=== PATIENT | male | born 1950 | race African-American/Black ===

== ENCOUNTER 2019-05-04 04:33 | Inpatient (IN) | payer MEDICAID, OTHER ==
[2019-05-04] VITALS (8 sets, daily range): BP systolic 130–146; BP diastolic 59–87
[~2019-05-04] VITALS: Ht 180.3 cm; Wt 67.1 kg
[2019-05-04] MEDS ORDERED: AMLODIPINE BESYL5 MG ORAL (04:37)
[2019-05-04] MEDS ORDERED: ATORVASTATIN CA20 MG ORAL (04:37)
--- NOTE | 2019-05-04 04:44 | Emergency Room Report ---
History of Present Illness General Chief Complaint: Suicidal Source: Patient, EMS (Frankie Lou MD) Present Illness HPI This is a 68-year-old male with a history of hypertension. He also has a history of chronic pain for which he takes Bethalto 10/325. He gets 120 tablets every month. He also get lidocaine injection. He presents with chief complaint of generalized body pain and feeling suicidal and homicidal. Onset tonight. He said he could not find his pain medication. He does not know what he left him. He complained of generalized body pain which is 10 out of 10. This caused him to be suicidal and homicidal. He said he needs observation. He is been through this before. He said they when he gets pain he will drink and use any drugs to make him feel better. He denies any trauma. No particular plans. (Frankie Lou MD) Allergies: Coded Allergies: IOHEXOL (Verified Allergy, Unknown, 05/04/19) IOPAMIDOL (Verified Allergy, Unknown, 05/04/19) Patient History Past Medical History: see triage record, old chart reviewed, psych hx, HTN Past Surgical History: other Family History: none Social History: tobacco use, ETOH, drug use Immunizations: other Reviewed Nursing Documentation: PMH: Agreed; PSxH: Agreed (Frankie Lou MD) Nursing Documentation-PMH Hx Cardiac Problems: Yes - HYPERLIPIDEMIA Hx Hypertension: Yes History Of Psychiatric Problem: Yes - DEPRESSION, DEMENTIA, PTSD (Frankie Lou MD) Review of Systems ENT: Denies: sore throat Cardiovascular: Denies: chest pain, palpitations Gastrointestinal/Abdominal: Denies: nausea, vomiting, diarrhea Musculoskeletal: Reports: back problems Skin: Denies: rash Psychiatric: Reports: suicidal/homicidal ideations Neurological: Denies: BOTELLO, seizures All Other Systems: negative except mentioned in HPI (Frankie Lou MD) Physical Exam Vital Signs Date Time Temp Pulse Resp B/P (MAP) Pulse Ox O2 Delivery O2 Flow Rate FiO2 05/04/19 04:26 98.4 70 16 179/90 (119) 98 Room Air Vitals with high blood pressure Sp02 EP Interpretation: reviewed, normal General Appearance: alert/responsive, no apparent distress, non-toxic Head: normocephalic, atraumatic Eyes: PERRL, EOMI ENT: oropharynx normal Neck: supple/symm/no masses Respiratory: effort normal, no rhonchi, no wheezing Cardiovascular: no murmur, gallop, rub Gastrointestinal: non-tender, no mass, non-distended, no rebound/guarding, normal bowel sounds Musculoskeletal: gait & station normal Neurologic: oriented x3, sensory intact, motor strength/tone normal Suicide Risk Assessment: Suicidal Ideation: Yes Had intent to initiate attempt: No Pt's plan for suicide attempt: No Has means to complete attempt: Yes Skin: no rash, normal palpation (Frankie Lou MD) Medical Decision Making Diagnostic Impression: Primary Impression: ACS (acute coronary syndrome) Additional Impressions: Chronic pain Qualified Codes: G89.4 - Chronic pain syndrome Polysubstance abuse Suicidal behavior Qualified Codes: R46.89 - Other symptoms and signs involving appearance and behavior Hypertension Qualified Codes: I10 - Essential (primary) hypertension ER Course This patient presents with feeling suicidal homicidal secondary to pain. He said he has chronic body pain. Troponin is intermediate. This may be secondary to substance abuse and demand ischemia. EKG showed no evidence of ST elevation. Because of the intermediate abnormal troponin, will need admission versus transfer further work-up and rule out before being evaluated by psychiatrist. Aspirin and Lovenox given here. Patient is chest pain-free now. (Frankie Lou MD) ER Course Patient signed out to me pending admission. Patient had received aspirin and Lovenox troponin elevation. Plan to admit patient here to telemetry floor for further observation. (Pablo Rouse M.D.) EKG Diagnostic Results Rate: normal Rhythm: NSR ST Segments: other - Right bundle branch block ASA given to the pt in ED: Yes (Frankie Lou MD) Rhythm Strip Diag. Results EP Interpretation: yes Rate: 66 Rhythm: NSR, no PVC's, no ectopy (Frankie Lou MD) Chest X-Ray Diagnostic Results Chest X-Ray Diagnostic Results : Chest X-Ray Ordered: Yes # of Views/Limited/Complete: 1 View Indication: Chest Pain EP Interpretation: Yes Interpretation: no consolidation, no effusion, no pneumothorax, no acute cardiopulmonary disease Impression: No acute disease Electronically Signed by: Frankie Lou MD (Frankie Lou MD) Last Vital Signs Date Time Temp Pulse Resp B/P (MAP) Pulse Ox O2 Delivery O2 Flow Rate FiO2 3/6/20 04:26 98.4 70 16 179/90 (817) 98 Room Air Status: improved (Frankie Lou MD) Disposition: ADMITTED INPATIENT Condition: Serious Frankie Lou MD May 04, 2019 04:44 Pablo Rouse M.D. May 04, 2019 07:32
[2019-05-04] MEDS ORDERED: Ketorolac 30mg Inj IV ONE (04:45)
[2019-05-04 05:26] LABS: BASOPHILS % (AUTO) 1.3 % (0.0-2.0); HEMATOCRIT 39.3 % (42.0-52.0); HEMOGLOBIN 14.6 G/DL (14.2-18.0); LYMPHOCYTES % (AUTO) 41.9 % (20.0-45.0); MEAN CORPUSCULAR VOLUME 90 FL (80-99); MONOCYTES % (AUTO) 10.1 % (1.0-10.0); NEUTROPHILS % (AUTO) 45.7 % (45.0-75.0); PLATELET COUNT 229 K/UL (150-450); RED BLOOD COUNT 4.35 M/UL (4.70-6.10); RED CELL DISTRIBUTION WIDTH 10.2 % (11.6-14.8); WHITE BLOOD COUNT 4.3 K/UL (4.8-10.8)
[2019-05-04 05:39] LABS: ANION GAP 12 mmol/L (5-15); BLOOD UREA NITROGEN 18 mg/dL (7-18); CALCIUM 9.2 MG/DL (8.5-10.1); CARBON DIOXIDE 26 MMOL/L (21-32); CHLORIDE 100 MMOL/L (98-107); CREATININE 0.9 MG/DL (0.55-1.30); POTASSIUM 3.4 MMOL/L (3.5-5.1); SODIUM 138 MMOL/L (136-145)
[2019-05-04 05:47] LABS: ALANINE AMINOTRANSFERASE 64 U/L (12-78); ALKALINE PHOSPHATASE 83 U/L (46-116); ASPARTATE AMINO TRANSFERASE 58 U/L (15-37); BILIRUBIN,TOTAL 0.9 MG/DL (0.2-1.0)
[2019-05-04] MEDS ORDERED: Aspirin Baby 81mg ORAL ONE (06:00)
[2019-05-04] MEDS ORDERED: Enoxaparin 80mg Inj SUBQ ONE (06:00)
[2019-05-04 06:46] LABS: APPEARANCE,URINE CLEAR; BILIRUBIN, URINE NEGATIVE (NEGATIVE); COLOR,URINE PALE YELLOW; GLUCOSE, URINE (UA) NEGATIVE (NEGATIVE); KETONES,URINE 1+ (NEGATIVE); LEUKOCYTE ESTERASE ,URINE NEGATIVE (NEGATIVE); NITRITE,URINE NEGATIVE (NEGATIVE); PH,URINE 7 (4.5-8.0); PROTEIN,URINE NEGATIVE (NEGATIVE); UROBILINOGEN,URINE NORMAL MG/DL (0.0-1.0)
[2019-05-04] MEDS ORDERED: dilTIAZem HCl 25mg/5ml Inj IV PRN (07:45)
[2019-05-04] MEDS ORDERED: Enalaprilat 2.5mg/2ml Inj IV PRN (07:45)
--- NOTE | 2019-05-04 08:46 | Diagnostic Imaging Report ---
Indication: Chest pain Technique: One view of the chest Comparison: none Findings: Lungs and pleural spaces are clear. Heart size is normal. Impression: No acute process
[2019-05-04] MEDS ORDERED: Miralax 17gm pkt ORAL PRN (09:15)
[2019-05-04] MEDS ORDERED: Albuterol/Ipratropium 3ml neb HHN PRN (09:15)
[2019-05-04] MEDS ORDERED: Nitroglycerin Subl 0.4mg tab SL PRN (09:15)
[2019-05-04] MEDS ORDERED: Aspirin Baby 81mg ORAL SCH (11:00)
[2019-05-04] MEDS: Heparin 5000 units/ml inj SUBQ SCH ×2 (11:38→21:04)
--- NOTE | 2019-05-04 15:30 | History and Physical Report ---
DATE OF ADMISSION: 05/04/2019 HISTORY OF PRESENT ILLNESS: This 68-year-old male with history of hypertension and chronic pain. He admits to cocaine usage. He also takes narcotics. He presented to the hospital with multiple complaints including chest pain and shortness of breath. He also reported being suicidal and being depressed. He is asking for pain medications. PAST MEDICAL HISTORY: Notable for psychiatric history, hypertension, and substance abuse. PAST SURGICAL HISTORY: None. SOCIAL HISTORY: He admits to alcohol use, tobacco use, and drug abuse. FAMILY HISTORY: None. HOME MEDICATIONS: Reviewed and reconciled in the chart. REVIEW OF SYSTEMS: Denies any headaches, hematemesis, melena, or hematochezia. PHYSICAL EXAMINATION: GENERAL: Reveals a 68-year-old male. VITAL SIGNS: Blood pressure is 130/80, heart rate 58, and respirations 18. He is afebrile. O2 saturation is 98% on room air. HEENT: Unremarkable. CHEST: Decreased breath sounds bilaterally. CARDIAC: Normal heart sounds. ABDOMEN: Soft. EXTREMITIES: There is no edema. NEUROLOGIC: Nonfocal. LABORATORY AND DIAGNOSTIC DATA: Lab testing shows normal CBC and BMP. Troponin is elevated to 0.11. Toxicology is positive for cocaine. Urinalysis is negative. Imaging studies obtained yesterday shows a clear chest x-ray. EKG showed normal sinus rhythm. IMPRESSION: 1. Chest pain. 2. Troponin leak. 3. Cocaine use. 4. Hypertension. 5. Depression. 6. PTSD. 7. Suicidal ideation. DISCUSSION: Admit to the hospital. I will continue his home medications. We will consult Psychiatry and Cardiology, check serial troponins. We will follow carefully. Tono Lackey M.D. DR: KIN JOB#: [id number] CC:
[2019-05-04] MEDS: Nitroglycerin 2% oint pkt TOPIC SCH (17:34)
[2019-05-04] MEDS ORDERED: Ketorolac 30mg Inj IV SCH (17:45)
--- NOTE | 2019-05-04 18:45 | Consultation ---
DATE OF CONSULTATION: 05/04/2019 CONSULTING PHYSICIAN: Chandra Monreal M.D. REFERRING PHYSICIAN: Tono Lackey M.D. REASON FOR CONSULTATION: Elevated troponin level in the setting of cocaine intoxication. HISTORY OF PRESENT ILLNESS: This 68-year-old male has a history of hypertension and chronic pain as well as cocaine abuse. He is on chronic narcotic analgesic therapy as well. He presented to the emergency room complaining of chest pain and shortness of breath. He has been suicidal and depressed as well. The patient's workup in the emergency room was notable for an elevated troponin level prompting this consultation. The patient denies chest pain at this time, but does have his usual diffuse back pain and is increasingly nauseated. PAST MEDICAL HISTORY: Hypertension, psychiatric disorder of unclear etiology, substance abuse, narcotic and analgesic dependence. SOCIAL HISTORY: Positive for alcohol, substance abuse including cocaine and tobacco use. FAMILY HISTORY: Noncontributory. MEDICATIONS: Reviewed and reconciled. REVIEW OF SYSTEMS: No known prior history of heart attack or irregular heartbeats. No history of rheumatic heart disease. No history of seizure or strokes. No known history of diabetes or thyroid impairment. Denies known history of COPD. Does not use nebulizer or inhaler therapy and has not been on steroids. Denies any known history of prostate cancer and denies any change in bowel habits or prior GI bleed. PHYSICAL EXAMINATION: VITAL SIGNS: Blood pressure 138/78, heart rate 68, respirations 18, afebrile, room air oxygen saturation 98%. GENERAL: Thin and tall. HEENT: Conjunctiva pink. Oropharynx clear. NECK: Supple. Jugular venous pressure normal. LUNGS: Clear. CARDIAC: Regular rhythm rate. Normal S1, S2 with a fourth heart sound. ABDOMEN: Soft, nontender. EXTREMITIES: No edema. NEUROLOGIC: Nonfocal. Affect is somewhat blunted. LABORATORY AND DIAGNOSTIC DATA: Chest x-ray with no acute process. Sodium 138, potassium 3.4. Troponin 0.117. BUN 18, creatinine 0.9. Albumin 4. White count 4.3, hemoglobin 14.6. EKG, sinus rhythm, 66 beats per minute, nonspecific ST change. IMPRESSION: 1. Cocaine intoxication. 2. Cardiac analgesic dependence with chronic pain. 3. Acute myocardial ischemia and possible non-ST elevation infarction. 4. Hypertension with labile blood pressure. 5. Hypokalemia. PLAN: 1. Cardiac monitoring. 2. Antiplatelet therapy. 3. DVT prophylaxis. 4. Topical nitrates. 5. Calcium channel therapy. 6. Avoid beta-blockers. 7. Symptom-guided pain control. 8. Consider nicotine patch. 9. PRN clonidine for blood pressure spikes. 10. Echocardiogram to evaluate left ventricular function. Chandra Monreal M.D. DR: MAREN JOB#: [id number] CC:
[2019-05-04] MEDS ORDERED: Atorvastatin 20mg tab ORAL SCH (21:00)
[2019-05-05] VITALS: BP 120/53
[2019-05-05 04:00] VITALS: BP 130/70
[2019-05-05] MEDS: Nitroglycerin 2% oint pkt TOPIC SCH (06:03)
[2019-05-05 07:27] LABS: HEMATOCRIT 36.5 % (42.0-52.0); MEAN CORPUSCULAR VOLUME 92 FL (80-99); PLATELET COUNT 186 K/UL (150-450); RED BLOOD COUNT 3.97 M/UL (4.70-6.10); RED CELL DISTRIBUTION WIDTH 10.4 % (11.6-14.8); WHITE BLOOD COUNT 3.4 K/UL (4.8-10.8)
[2019-05-05 08:00] VITALS: BP 147/76
[2019-05-05 08:14] LABS: ALANINE AMINOTRANSFERASE 40 U/L (12-78); ALBUMIN/GLOBULIN RATIO 0.9 (1.0-2.7); ALKALINE PHOSPHATASE 64 U/L (46-116); ANION GAP 10 mmol/L (5-15); ASPARTATE AMINO TRANSFERASE 39 U/L (15-37); BILIRUBIN,TOTAL 0.7 MG/DL (0.2-1.0); BLOOD UREA NITROGEN 19 mg/dL (7-18); CALCIUM 8.7 MG/DL (8.5-10.1); CARBON DIOXIDE 25 MMOL/L (21-32); CHLORIDE 107 MMOL/L (98-107); CHOLESTEROL 125 MG/DL (< 200); CREATININE 1.1 MG/DL (0.55-1.30); HDL CHOLESTEROL 71 MG/DL (40-60); POTASSIUM 3.9 MMOL/L (3.5-5.1); SODIUM 142 MMOL/L (136-145); TRIGLYCERIDES 44 MG/DL (30-150)
[2019-05-05 08:22] VITALS: BP 147/76
[2019-05-05] MEDS: Heparin 5000 units/ml inj SUBQ SCH (08:27)
[2019-05-05] MEDS ORDERED: Aspirin Baby 81mg ORAL SCH (09:00)
--- NOTE | 2019-05-06 00:30 | Progress Note ---
DATE: 05/05/2019 CARDIOLOGY PROGRESS NOTE SUBJECTIVE: The patient denies any distress. He is anxious to leave. I have discussed he has no chest pain. PHYSICAL EXAMINATION: VITAL SIGNS: Blood pressure 147/76, pulse 57, respiratory rate 17. LUNGS: Clear. CARDIAC: Regular. Normal S1, S2 with a fourth heart sound. ABDOMEN: Soft. No edema. IMPRESSION: 1. Cocaine abuse. 2. Acute myocardial ischemia and possible infarction. 3. Hypertension with labile blood pressure improved. 4. Hypokalemia status post replacement therapy. PLAN: 1. Continue anti-platelet drugs. 2. Calcium blockers and nitrates. 3. No beta-blockers. 4. Symptom-guided pain control. 5. Await echocardiogram. 6. The patient counseled regarding the risk of sudden cardiac with cocaine use as well as long-term cardiovascular compromise. Chandra Monreal M.D. DR: YVETTE JOB#: [id number] CC:
--- NOTE | 2019-05-06 11:11 | Discharge Summary ---
Discharge Summary Discharge Summary _ DATE OF ADMISSION: 05/04/2019 DATE OF DISCHARGE: 05/05/2019 Patient left AGAINST MEDICAL ADVICE REASON FOR ADMISSION: 68 years old male with past medical history of hypertension, substance abuse, psychiatric history, chronic pain, cocaine use , presented to the hospital with multiple complaints, including chest pain and shortness of breath. Patient also reported being depressed. Patient was asking for pain medication. Upon evaluation blood pressure was elevated 179/90, pulse oximetry was stable on room air. Laboratory work-up revealed troponin 0.117 .EKG revealed sinus rhythm with nonspecific ST changes. Potassium 3.4, stable other electrolytes and renal parameters. No leukocytosis , stable hemoglobin and hematocrit . Urine toxicology screen positive for cocaine. Serum Tylenol ,salicylate and alcohol were negative. Chest x-ray demonstrated no acute cardiopulmonary pathology. In emergency department patient received aspirin and Lovenox and admitted for further management CONSULTANTS: medical records supervisor [facility]RSE: Patient admitted to telemetry floor. Home medication continued. Psychiatry and cardiology consults were requested. Serial troponinswere followed: second troponin down to near normal -0.058. Echocardiogram revealed preserved ejection fraction of 60 to 65% with no evidence of wall motion abnormality to the extent visualized. Concentric left ventricular hypertrophy. Right ventricular systolic pressure of 22. Lipid panel was stable. Patient was on antiplatelet therapy, topical nitrates and calcium channel therapy. Beta-pepito avoided due to active use of cocaine. Blood pressure was managed with calcium channel pepito and clonidine was on board as needed for blood pressure spikes. Hypokalemia corrected, potassium stable the next day. Magnesium level stable. TSH within normal limits. Blood pressure stabilized with current regimen . Pprior to signing AMA blood pressure 147/76. In the morning on 05/04 patient decided to leave AGAINST MEDICAL ADVICE. Patient had no signs and symptoms of respiratory distress. He denied any chest pain. The risks and consequences of signing AGAINST MEDICAL ADVICE were discussed with patient in detail. Patient verbalized understanding, nevertheless signed AMA form and left. FINAL DIAGNOSES: Chest pain Acute myocardial ischemia Possible NSTEMI Hypertension with labile blood pressure Hypokalemia Cocaine intoxication Depression PTSD I have been assigned to dictate discharge summary for this account. I was not involved in the patient's management. Niki Mata NP May 06, 2019 11:11
== END 2019-05-05 10:50 | disposition left against medical advice (07) | DRG 281 ==
LOC: EDBD 04:33 → EMR 05:01 → EDBEDREQ 09:18 → 2E 09:23
DX: I21.4 Non-ST elevation (NSTEMI) myocardial infarction (principal); R45.851 Suicidal ideations; F14.129 Cocaine abuse with intoxication, unspecified; G89.29 Other chronic pain; E78.5 Hyperlipidemia, unspecified; F43.10 Post-traumatic stress disorder, unspecified; E87.6 Hypokalemia; F32.9 Major depressive disorder, single episode, unspecified; I10 Essential (primary) hypertension; F55.8 Abuse of other non-psychoactive substances
CPT/HCPCS: 36415; 71045; 80053; 80061; 80307; 81003; 83735; 84443; 84484; 85007; 85025; 85610; 85730; 86140; 93005; 93306; 96361; 96374; 99285; G0480; J7030; J8499